=== PATIENT | female | born 1945 | race Caucasian/White ===

== ENCOUNTER 2016-09-01 08:59 | Inpatient (IN) ==
--- NOTE | 2016-09-01 09:19 | Emergency Department Note ---
Disposition Clinical Impression: Acute exacerbation of chronic obstructive airways disease Disposition: Admitted As Inpatient Condition: Fair SOB HPI - General Chief Complaint: ED Shortness of Breath/Dyspnea Stated Complaint: JAKE Time Seen by Provider: 09/01/16 09:12 Source: patient, family Mode of arrival: wheelchair Limitations: no limitations Nursing Notes Reviewed: Yes Vital Signs Reviewed: Yes (O2 saturation low at 85%, improved to 95% on supplemental oxygen.) - History of Present Illness Ms Yuan is a 71 year old female that presents with cough and shortness of breath for 3 days. Patient states cough began on Tuesday, advancing to shortness of breath on Tuesday prompting her to Urgentcare where she was diagnosed with bronchitis and given a cough suppressant and azithromycin (patient began antibiotic yesterday). Patient states that JAKE is worse at night and with exertion. Noted associated cough, but denies sputum production. Denies fever, nausea, vomiting, or congestion. Patient also notes increased fatigue and difficulty with PO intake due to shortness of breath. No use of home oxygen or bronchodilators. Patient continues to smoke approx 1 ppd. Full Code at bedside. Pt Subjective Complaint: shortness of breath, cough Onset (ago): day(s) (3) Severity: moderate Consistency/Duration: gradually worsening Improves with: oxygen, rest, upright position Worsens with: lying flat, exertion, coughing Associated symptoms: Reports: cough. Denies: chest pain, fever, sputum production, palpitations, diaphoresis, nausea/vomiting, syncope, abdominal pain Treatment prior to arrival: none Cough present: Yes Cough Description: Involuntary, Non-Productive, Wheezy Cough Frequency: Intermittent Sputum production: No Sputum Amount: None - Related Data Home oxygen amount: none Home Medications Medication Instructions Recorded Confirmed Allopurinol [Zyloprim 100 MG] 100 mg PO QPM 09/01/16 09/01/16 Azithromycin [Azithromycin 6-Tab 250 mg PO PER PKG DI 09/01/16 09/01/16 Pack] Benzonatate [Tessalon] 200 mg PO TID PRN 09/01/16 09/01/16 Levothyroxine [Synthroid] 25 mcg PO DAILY 09/01/16 09/01/16 Losartan/HCTZ [Hyzaar 50-12.5 1 tab PO QPM 09/01/16 09/01/16 Tablet] Promethazine/Phenyleph/Codeine 5 ml PO TID PRN 09/01/16 09/01/16 [Promethazine Vc-Codeine Syrup] Allergies Allergy/AdvReac Type Severity Reaction Status Date / Time Penicillins Allergy Hives Verified 09/01/16 09:10 All systems ED: reviewed and negative except as stated. Constitutional: Reports: as per HPI. Denies: fever, chills, weakness Eyes: Denies: vision change ENT ED: Reports: dysphagia (with shortness of breath). Denies: hearing loss Cardiovascular: Reports: dyspnea on exertion. Denies: chest pain, palpitations , edema, syncope Respiratory: Reports: cough, dyspnea, wheezes Gastrointestinal: Denies: abdominal pain, nausea, vomiting, diarrhea, hematemesis, melena Genitourinary: Denies: urgency, dysuria, frequency, hematuria Integumentary: Denies: rash Neurological: Denies: headache, weakness, confusion Psychiatric: Reports: anxiety, depression Endocrine: Reports: fatigue Hematological/Lymphatic: Denies: easy bleeding, easy bruising Past Medical History - Past Medical History Attestation: Yes The following information was validated with the patient. Source: patient, obtained from family Medical history: Reports: hypertension, thyroid disease Surgical history: Reports: appendectomy, (x2), cataract (bilaterally) , cholecystectomy Psychiatric history: Reports: anxiety SOCKET PULLER history: Reports: no SOCKET PULLER history - Social History Smoking Status: Current every day smoker Packs per day: 1 Smokeless Tobacco Status: No Alcohol use: Reports: none Drug use: Reports: none Physical Exam - General Limitations: no limitations General appearance: alert - Eye Eye exam: Present: normal appearance, PERRL, EOMI - ENT ENT exam: normal exam, normal oropharynx, mucous membranes moist, normal external ear exam - Neck Neck exam: Present: normal inspection, full ROM, trachea midline - Chest Chest inspection: Present: normal inspection, symmetric chest wall rise. Absent : tenderness - Respiratory Respiratory exam: Present: wheezes - Cardiovascular Cardiovascular exam: Present: regular rate, +S1, +S2 - Abdominal Exam Abdominal exam: Present: soft, Non-Tender, normal bowel sounds - Extremities Exam Extremities exam: Present: normal inspection, full ROM, normal capillary refill. Absent: pedal edema, calf tenderness - Back Exam Back exam: Present: normal inspection. Absent: CVA tenderness (R), CVA tenderness (L) - Neurological Exam Neurological exam: Present: alert, oriented X3, CN II-XII intact - Psychiatric Psychiatric exam: Present: normal affect, normal mood - Skin Skin exam: Present: warm, dry, intact, normal color Course Course Narrative: Ms Yuan is a 71 year old female that presents with cough and shortness of breath for 3 days. Patient states cough began on Tuesday, advancing to shortness of breath on Tuesday prompting her to Urgentcare where she was diagnosed with bronchitis and given a cough suppressant and azithromycin (patient began antibiotic yesterday). Patient states that JAKE is worse at night and with exertion. Noted associated cough, but denies sputum production. Denies fever, nausea, vomiting, or congestion. Patient also notes increased fatigue and difficulty with PO intake due to shortness of breath. No use of home oxygen or bronchodilators. Patient continues to smoke approx 1 ppd. - Reevaluation(s) Reevaluation #1: Patient received duoneb treatment and IV steroid dose. Patient's O2 saturation was 88% which I entered the room, patient easily arousable, but stated she had been nodding off. O2 saturation jumped up to 94% when awoken. She states she feels her she is moving air better, but is still short of breath. Time: 11:03 Vital Signs Temperature 98.5 F 09/01/16 09:05 Pulse Rate 82 09/01/16 09:05 Respiratory Rate 22 09/01/16 09:05 Blood Pressure 133/78 09/01/16 09:05 O2 Sat by Pulse Oximetry 85 L 09/01/16 09:05 Temperature 97.6 F 09/01/16 16:21 Pulse Rate 71 09/01/16 16:21 Respiratory Rate 16 09/01/16 17:10 Blood Pressure 128/64 09/01/16 16:21 O2 Sat by Pulse Oximetry 98 09/01/16 17:10 Oxygen Delivery Oxygen Delivery Nasal Cannula Shortness of Breath/Dyspnea - Differential Diagnosis Likely: acute exacerbation of chronic obstructive airways disease, congestive heart failure, pneumonia, pulmonary embolism, pneumothorax, arrhythmia - Medical Records Medical records reviewed: Yes I reviewed the patient's medical records. - Lab Data Lab results reviewed: Yes I reviewed the patient's lab results. Result diagrams: 09/01/16 09:38 09/01/16 09:38 Lab Results 09/01/16 09/01/16 09/01/16 Range/Units 09:38 09:38 09:38 WBC 9.1 (4.3-11.1) K/mcL RBC 5.03 H (3.82-4.97) M/mcL Hgb 14.3 (11.5-15.4) g/dL Hct 44.1 (35.3-44.9) % MCV 87.7 (83.0-100.0) fL MCH 28.4 (28.0-33.3) pg MCHC 32.4 (31.6-35.5) g/dL RDW 13.9 (11.5-14.5) % Plt Count 208 (140-400) K/mcL MPV 11.3 (9.4-12.4) fL Immature Gran % 0.3 (0-4) % Seg Neutrophils % 79.8 % Lymphocytes % 11.0 % Monocytes % 8.5 % Eosinophils % 0.0 % Basophils % 0.4 % Neutrophils # 7.3 (1.6-8.9) K/mcL Lymphocytes # 1.0 (0.6-4.6) K/mcL Monocytes # 0.8 (0.0-1.3) K/mcL Eosinophils # 0.0 (0.0-0.6) K/mcL Basophils # 0.0 (0.0-0.2) K/mcL Platelet Estimate Normal (Normal) Sodium 139 (136-145) mEq/L Potassium 3.4 L (3.5-4.5) mEq/L Chloride 101 (98-109) mEq/L Carbon Dioxide 25 (19-29) mEq/L BUN 19 (7-20) mg/dL Creatinine 0.96 (0.57-1.11) mg/dL Est GFR ( Amer) > 60 (> 60) Est GFR (Non-Af Amer) 57 L (> 60) BUN/Creatinine Ratio 20 (6-26) Glucose 136 H (70-99) mg/dL Calculated Osmolality 292 (280-300) Calcium 8.9 (8.6-10.8) mg/dL Troponin I 0.02 (0-0.03) ng/mL B-Natriuretic Peptide (0-100) pg/mL 09/01/16 Range/Units 09:38 WBC (4.3-11.1) K/mcL RBC (3.82-4.97) M/mcL Hgb (11.5-15.4) g/dL Hct (35.3-44.9) % MCV (83.0-100.0) fL MCH (28.0-33.3) pg MCHC (31.6-35.5) g/dL RDW (11.5-14.5) % Plt Count (140-400) K/mcL MPV (9.4-12.4) fL Immature Gran % (0-4) % Seg Neutrophils % % Lymphocytes % % Monocytes % % Eosinophils % % Basophils % % Neutrophils # (1.6-8.9) K/mcL Lymphocytes # (0.6-4.6) K/mcL Monocytes # (0.0-1.3) K/mcL Eosinophils # (0.0-0.6) K/mcL Basophils # (0.0-0.2) K/mcL Platelet Estimate (Normal) Sodium (136-145) mEq/L Potassium (3.5-4.5) mEq/L Chloride (98-109) mEq/L Carbon Dioxide (19-29) mEq/L BUN (7-20) mg/dL Creatinine (0.57-1.11) mg/dL Est GFR ( Amer) (> 60) Est GFR (Non-Af Amer) (> 60) BUN/Creatinine Ratio (6-26) Glucose (70-99) mg/dL Calculated Osmolality (280-300) Calcium (8.6-10.8) mg/dL Troponin I (0-0.03) ng/mL B-Natriuretic Peptide 30 (0-100) pg/mL - Radiology Data Radiology results reviewed: Yes I reviewed the patient's radiology results. Attestation Statement - Attestation Attestation: I examined this patient and my medical decision-making was reviewed with the LUMBER SALES SUPERVISOR/PA/Advanced Practice Nurse/Resident Physician. I agree with the documented findings, disposition and treatment plan as described except to the extent set forth below. Patient presents today with 3 day history of upper respiratory symptoms and wheezing. She has a long history of smoking but no formal diagnosis of COPD. After initial DuoNeb and steroids patient was still wheezy and dyspneic I recommended hospitalization.
[2016-09-01 09:45] LABS: Basophils % 0.4 %; Hematocrit 44.1 % (35.3-44.9); Hemoglobin 14.3 g/dL (11.5-15.4); Immature Granulocytes % 0.3 % (0-4); Mean Corpuscular HGB Conc 32.4 g/dL (31.6-35.5); Mean Corpuscular Hemoglobin 28.4 pg (28.0-33.3); Mean Corpuscular Volume 87.7 fL (83.0-100.0); Mean Platelet Volume 11.3 fL (9.4-12.4); Monocytes # 0.8 K/mcL (0.0-1.3); Monocytes % 8.5 %; Platelet Count 208 K/mcL (140-400); Red Blood Count 5.03 M/mcL (3.82-4.97); Red Cell Distribution Width 13.9 % (11.5-14.5); Segmented Neutrophils % 79.8 %
[2016-09-01 09:47] LABS: Neutrophils # 7.3 K/mcL (1.6-8.9)
[2016-09-01] MEDS ORDERED: methylPREDNISolone 125 MG/2 ML VIAL IVP ONE (09:48)
[2016-09-01] MEDS ORDERED: Ipratropium/Albuterol Neb 3 ML IH ONE ×2 (09:48→11:07)
[2016-09-01 09:59] LABS: BUN/Creatinine Ratio 20 (6-26); Blood Urea Nitrogen 19 mg/dL (7-20); Calcium 8.9 mg/dL (8.6-10.8); Carbon Dioxide 25 mEq/L (19-29); Chloride 101 mEq/L (98-109); Glucose 136 mg/dL (70-99); Osmolality,Calculated 292 (280-300); Potassium 3.4 mEq/L (3.5-4.5); Sodium 139 mEq/L (136-145); eGFR For African Americans > 60 (> 60); eGFR For Non-African Americans 57 (> 60)
[2016-09-01 10:06] LABS: Platelet Estimate Normal (Normal)
[2016-09-01] MEDS ORDERED: Levofloxacin 750 MG/150 ML 750 MG/150 ML BAG IVPB ONE (11:22)
[2016-09-01] MEDS ORDERED: Naloxone 0.4 MG/ML INJ IVP PRN (14:02)
[2016-09-01] MEDS ORDERED: Acetaminophen 325 MG TABLET PO PRN (14:02)
[2016-09-01] MEDS ORDERED: Albuterol 2.5 MG/3 ML NEBULIZER IH PRN (14:48)
--- NOTE | 2016-09-01 14:51 | Internal Med History&Physical ---
Date of Encounter: 09/01/16 Time of Encounter: 14:50 Assessment and Plan (1) Acute exacerbation of chronic obstructive airways disease Current visit: Yes Status: Acute 1 patient has been experiencing increasing shortness of breath and cough over the past 3 days. She does have a history of smoking 1 pack per day. She was hypoxic upon presentation with SPO2 of 85% we will continue with oxygen titrated to maintain SPO2 greater than 92% 2 continue with steroids to taper 3 continue with Levaquin 4 continue with Mucinex 5 continue with bronchodilators 6 patient may need a 6 minute walk test prior to discharge to evaluate need for home oxygen (2) Hypertension Current visit: Yes Status: Acute 1 week and told continue with home medications with a maintain systolic less than 140 Qualifiers: Hypertension type: essential hypertension Qualified Code(s): I10 - Essential (primary) hypertension (3) Hypothyroid Current visit: Yes Status: Acute 1 we will continue with Synthroid Qualifiers: Hypothyroidism type: unspecified Qualified Code(s): E03.9 - Hypothyroidism , unspecified (4) Tobacco abuse Current visit: Yes Status: Acute 1 discuss the importance of smoking cessation with the patient, nicotine patch (5) DVT prophylaxis Current visit: Yes Status: Acute [facility] Internal Medicine - H&P: HPI Chief complaint: sob Admitted From: Emergency Dept Plans for Post Hospital Care: Home History of present illness: Ms. Yuan is a 71 year old female past medical history hypertension hypothyroid gout tobacco abuse. The patient she been experiencing a non- productive cough no fevers chills which started on Tuesday. She went to urgent care Tuesday and was diagnosed with bronchitis and was who prescribed azithromycin as well as cough medicine. By Tuesday her cough continues to began to experiencing shortness of breath on exertion as well as increased fatigue decreased oral intake and orthopnea . She denies any fevers nausea vomiting abdominal pain chills congestion. She denies any past history of COPD home oxygen use her bronchodilators. She smokes approximately one pack a day. She admits to sick contacts. She presented since the ER with the above complaints. According to ER records upon presentation patient appeared tachypneic with O2 sat saturations 85% on room air. She was given supplemental oxygen as due to increase in 95%. Lab work was obtained there was no leukocytosis troponin was negative. Chest x-ray did reveal no pneumonia images consistent with bronchitis and chronic COPD changes. She was given breathing treatments as well as steroids respiratory status improved. She is admitted for further workup and evaluation. Presently patient denies any shortness of breath she does not appear to be any respiratory distress however her sats are 92% on 3 L nasal cannula fingertips are slightly dusky. Nursing reports the patient's oxygen saturation does drop during exertion down to the upper 80s. Patient increased to 4 L nasal cannula. Patient does have audible wheezes and a moist nonproductive cough. I reviewed this case with Dr. Rodriguez who agrees with the plan. Past Med Surg Social Fam HX - Past Medical History Medical history: hypertension, thyroid disease Psychiatric history: anxiety - Past Surgical History Surgical History: appendectomy, , cataract, cholecystectomy - Social History Smoking Status: Current every day smoker Packs per day: 1 Smokeless Tobacco Status: No Alcohol use: none Drug use: none Internal Medicine - H&P: Meds Allopurinol [Zyloprim 100 MG] 100 mg PO QPM 09/01/16 [History] Azithromycin [Azithromycin 6-Tab Pack] 250 mg PO PER PKG DI 09/01/16 [History] Benzonatate [Tessalon] 200 mg PO TID PRN 09/01/16 [History] Levothyroxine [Synthroid] 25 mcg PO DAILY 09/01/16 [History] Losartan/HCTZ [Hyzaar 50-12.5 Tablet] 1 tab PO QPM 09/01/16 [History] Promethazine/Phenyleph/Codeine [Promethazine Vc-Codeine Syrup] 5 ml PO TID PRN 09/01/16 [History] Allergies Penicillins Allergy (Verified 09/01/16 09:10) Hives All Systems PM: A 10-system review of systems was performed and is negative for pertinent findings except as documented above in the HPI. - Constitutional Constitutional: anorexia, fatigue, weakness - Cardiovascular Cardiovascular ROS IM: orthopnea, no chest pain, no diaphoresis, no dyspnea, no lightheadedness, no palpitations, no syncope - Respiratory Respiratory: cough, dyspnea on exertion, wheezing - Gastrointestinal Gastrointestinal: no abdominal pain, no diarrhea, no hematemesis, no hematochezia, no melena, no nausea, no vomiting - Genitourinary Genitourinary: no change in urinary stream, no dysuria, no flank pain, no hematuria - Musculoskeletal Musculoskeletal ROS IM: no numbness, no tingling - Integumentary Integumentary IM: no rash, no unusual bruising - Neurological Neurological ROS: no confusion, no convulsions, no focal weakness, no numbness, no tingling, no tremor(s) - Constitutional Vitals: Temp Pulse Resp BP Pulse Ox 98.5 F 72 18 128/57 92 L 09/01/16 09:05 09/01/16 14:26 09/01/16 14:26 09/01/16 14:26 09/01/16 14:27 General appearance: Present: A&O X 3, no acute distress, answers questions appropriately - Head Head exam: Present: atraumatic, normocephalic - Eye Eye exam: Present: PERRL, conjuntiva pink, sclera anicteric Pupils: Present: PERRL - Neck Neck exam general surgery: Present: supple, trachea midline. Absent: lymphadenopathy - Respiratory Respiratory exam: Present: wheezes. Absent: accessory muscle use, rales, rhonchi Additional comments: Audible expiratory wheezes - Cardiovascular Cardiovascular exam: Present: RRR, +S1, +S2. Absent: diastolic murmur, gallop, rubs, systolic murmur - GI/Abdominal GI/Abdominal exam: Present: normal bowel sounds, soft, no peritoneal signs. Absent: distended, tenderness - Extremities Exam Extremities exam: Present: cyanotic, warm, radial pulses palpable and symetrical. Absent: calf tenderness, pedal edema - Neurological Exam Neurological exam: Present: CN II-XII intact, oriented X3, no focal deficits. Absent: pronater drift, facial droop, speech deficit - Skin Skin exam: Present: cyanosis, dry, intact Internal Med - H&P Results - Labs CBC & Chem 7: 09/01/16 09:38 09/01/16 09:38 - Diagnostic Studies Chest x-ray Additional comments: Chest X-Ray 09/01/16 09:12 IMPRESSION: Findings suggesting COPD with acute versus chronic bronchitis. No lobar pneumonia. D/ / Tuan Florez MD / Tuan Florez MD Interpreting Provider: Tuan Florez MD - VTE Reasons for not Prescribing Prophylaxis: Treatment not Indicated - Low risk for VTE
[2016-09-01] MEDS ORDERED: Ipratropium/Albuterol Neb 3 ML IH SCH (17:00)
[2016-09-01] MEDS: Ipratropium/Albuterol Neb 3 ML IH SCH ×2 (17:15→22:02)
[2016-09-01] MEDS: Nicotine 14 MG PATCH.TD24 TD SCH (18:23)
[2016-09-01] MEDS: Losartan/HCTZ 50-12.5 TABLET PO SCH (18:25)
[2016-09-01] MEDS: methylPREDNISolone 125 MG/2 ML VIAL IM SCH (18:25)
[2016-09-02] MEDS: methylPREDNISolone 125 MG/2 ML VIAL IM SCH ×2 (00:29→05:27)
[2016-09-02] MEDS: Ipratropium/Albuterol Neb 3 ML IH SCH ×4 (04:06→23:17)
[2016-09-02 05:22] LABS: Basophils % 0.1 %; Hematocrit 41.5 % (35.3-44.9); Hemoglobin 13.8 g/dL (11.5-15.4); Immature Granulocytes % 0.5 % (0-4); Lymphocytes # 0.9 K/mcL (0.6-4.6); Lymphocytes % 11.2 %; Mean Corpuscular HGB Conc 33.3 g/dL (31.6-35.5); Mean Corpuscular Hemoglobin 29.2 pg (28.0-33.3); Mean Corpuscular Volume 87.7 fL (83.0-100.0); Mean Platelet Volume 11.9 fL (9.4-12.4); Monocytes # 0.4 K/mcL (0.0-1.3); Monocytes % 4.8 %; Neutrophils # 6.6 K/mcL (1.6-8.9); Platelet Count 205 K/mcL (140-400); Red Blood Count 4.73 M/mcL (3.82-4.97); Red Cell Distribution Width 13.6 % (11.5-14.5); Segmented Neutrophils % 83.4 %
[2016-09-02] MEDS: Levothyroxine 25 MCG TABLET PO SCH (05:27)
[2016-09-02 05:43] LABS: BUN/Creatinine Ratio 23 (6-26); Blood Urea Nitrogen 24 mg/dL (7-20); Calcium 9.1 mg/dL (8.6-10.8); Carbon Dioxide 26 mEq/L (19-29); Chloride 102 mEq/L (98-109); Glucose 177 mg/dL (70-99); Osmolality,Calculated 300 (280-300); Potassium 3.2 mEq/L (3.5-4.5); Sodium 141 mEq/L (136-145); eGFR For African Americans > 60 (> 60); eGFR For Non-African Americans 52 (> 60)
--- NOTE | 2016-09-02 06:34 | Electrocardiograph Report ---
[facility] Test Date: 2016-09-01 Pat Name: Gini Yuan Department: 103 Room: 3A43 Gender: F Fiscal Accounting Clerk: [id number] : 1945 Requested By: Polo Roca Order Number: [id number] Reading MD: Latrell Peter DO Measurements Intervals Lena Rate: 81 P: 64 NC: 169 QRS: 40 QRSD: 153 T: 171 QT: 414 QTc: 451 Interpretive Statements SINUS RHYTHM LEFT BUNDLE BRANCH BLOCK INTERPRETATION BASED ON A DEFAULT AGE OF 40 YEARS Electronically Signed On 09-02-2016 6:33:06 EDT by Latrell Peter DO
[2016-09-02] MEDS: Nicotine 14 MG PATCH.TD24 TD SCH (08:21)
[2016-09-02] MEDS ORDERED: Levofloxacin 750 MG/150 ML 750 MG/150 ML BAG IVPB SCH (09:00)
[2016-09-02] MEDS ORDERED: methylPREDNISolone 125 MG/2 ML VIAL IVP SCH (12:00)
--- NOTE | 2016-09-02 14:59 | Internal Med Progress Note ---
Date of Encounter: 09/02/16 Time of Encounter: 14:57 - Assessment and plan (1) Hypokalemia Current Visit: Yes Status: Acute Assessment and plan: Replace potassium today orally. Recheck potassium in the morning (2) Acute exacerbation of chronic obstructive airways disease Current Visit: Yes Status: Acute Assessment and plan: See plan delineated in acute respiratory failure (3) Tobacco abuse Current Visit: Yes Status: Acute Assessment and plan: I was fairly blunt with the patient in regards to smoking cessation being the cornerstone and an imperative for the treatment of her lung disease (4) Acute respiratory failure with hypoxia Current Visit: Yes Status: Acute Assessment and plan: #1 increase Solu-Medrol to 125 every 6 hours. #2 continue current aerosols #3 continue IV antibiotics - Time Spent With Patient 25 - 35 minutes - Subjective Interval history: This is a 71-year-old female tells me she has been diagnosed with "COPD" before and still continues to smoke. She had gradually more short of breath with increased coughing and sputum production. On evaluation in emergency found to be hypoxic. She required a fair amount of oxygen up to 4 L/m initially and then is gradually taper down about 2 L per nasal cannula but still requiring oxygen. She still continues to have a cough. She still feels short of breath. She still feels quite miserable. She looks uncomfortable. While in the room she is in a tripod position while up in the chair at the bedside - Constitutional Vitals: Temp Pulse Resp BP Pulse Ox 97.7 F 77 16 119/62 97 09/02/16 14:54 09/02/16 14:54 09/02/16 14:54 09/02/16 14:54 09/02/16 14:54 General appearance: Present: mild distress, A&O X 3, obese, answers questions appropriately - Respiratory Respiratory exam: Present: respiratory distress (Mild respiratory distress), wheezes. Absent: accessory muscle use, chest wall tenderness, tachypnea - Expanded Respiratory Exam Location: wheezes: Upper, Lower, Right, Left - Cardiovascular Cardiovascular exam: Present: RRR Internal Medicine: Result - Labs CBC & Chem 7: 09/02/16 04:46 09/02/16 04:46 Labs: Short CBC 09/02/16 Range/Units 04:46 WBC 7.9 (4.3-11.1) K/mcL Hgb 13.8 (11.5-15.4) g/dL Hct 41.5 (35.3-44.9) % Plt Count 205 (140-400) K/mcL Neutrophils # 6.6 (1.6-8.9) K/mcL BMP 09/02/16 04:46 Sodium 141 Potassium 3.2 L Chloride 102 Carbon Dioxide 26 BUN 24 H Creatinine 1.05 Glucose 177 H Calcium 9.1 - VTE Reasons for not Prescribing Prophylaxis: Treatment not Indicated - Low risk for VTE Consult Discharge Plan - Plan Referrals: Lukasz Gomes [Primary Care Provider] - 09/14/16 11:30 am
[2016-09-02] MEDS: *HR* Heparin 5,000 UNIT/ML VIAL SQ SCH (18:34)
[2016-09-02] MEDS: methylPREDNISolone 125 MG/2 ML VIAL IVP SCH (18:34)
[2016-09-02] MEDS: Losartan/HCTZ 50-12.5 TABLET PO SCH (18:34)
[2016-09-02] MEDS: Beclomethasone 40mcg MDI IH SCH (23:24)
[2016-09-03] MEDS: methylPREDNISolone 125 MG/2 ML VIAL IVP SCH ×5 (00:23→23:50)
[2016-09-03 04:33] LABS: Basophils % 0.2 %; Hematocrit 40.7 % (35.3-44.9); Hemoglobin 13.2 g/dL (11.5-15.4); Immature Granulocytes % 0.6 % (0-4); Lymphocytes # 1.1 K/mcL (0.6-4.6); Lymphocytes % 6.2 %; Mean Corpuscular HGB Conc 32.4 g/dL (31.6-35.5); Mean Corpuscular Hemoglobin 28.4 pg (28.0-33.3); Mean Corpuscular Volume 87.7 fL (83.0-100.0); Mean Platelet Volume 11.9 fL (9.4-12.4); Monocytes # 0.7 K/mcL (0.0-1.3); Monocytes % 3.7 %; Neutrophils # 16.2 K/mcL (1.6-8.9); Platelet Count 225 K/mcL (140-400); Red Blood Count 4.64 M/mcL (3.82-4.97); Red Cell Distribution Width 13.8 % (11.5-14.5); Segmented Neutrophils % 89.3 %
[2016-09-03] MEDS: Ipratropium/Albuterol Neb 3 ML IH SCH ×4 (04:44→21:21)
[2016-09-03 04:55] LABS: BUN/Creatinine Ratio 32 (6-26); Blood Urea Nitrogen 32 mg/dL (7-20); Calcium 9.5 mg/dL (8.6-10.8); Carbon Dioxide 27 mEq/L (19-29); Chloride 104 mEq/L (98-109); Glucose 183 mg/dL (70-99); Osmolality,Calculated 304 (280-300); Potassium 3.2 mEq/L (3.5-4.5); Sodium 141 mEq/L (136-145); eGFR For African Americans > 60 (> 60); eGFR For Non-African Americans 54 (> 60)
[2016-09-03] MEDS: *HR* Heparin 5,000 UNIT/ML VIAL SQ SCH ×2 (05:52→18:14)
[2016-09-03] MEDS: Levothyroxine 25 MCG TABLET PO SCH (05:55)
--- NOTE | 2016-09-03 08:01 | Internal Med Progress Note ---
Date of Encounter: 09/03/16 Time of Encounter: 07:59 - Assessment and plan (1) Acute exacerbation of chronic obstructive airways disease Current Visit: Yes Status: Acute Assessment and plan: still wheezing and sob will continue treatment not stable for discharge (2) Acute respiratory failure with hypoxia Current Visit: Yes Status: Acute Assessment and plan: clinically improved (3) Hypertension Current Visit: Yes Status: Acute Assessment and plan: now well controlled Qualifiers: Hypertension type: essential hypertension Qualified Code(s): I10 - Essential (primary) hypertension (4) Hypokalemia Current Visit: Yes Status: Acute Assessment and plan: k still 3.2 (5) Hypothyroid Current Visit: Yes Status: Chronic Assessment and plan: continue supplement Qualifiers: Hypothyroidism type: unspecified Qualified Code(s): E03.9 - Hypothyroidism , unspecified (6) Tobacco abuse Current Visit: Yes Status: Chronic Assessment and plan: chronic - Subjective Interval history: Patient with history of copd/asthma, smoking history admitted with incraesed sob and dry coughing no chest pain . today feels better on exam stl wheezing - Constitutional Vitals: Temp Pulse Resp BP Pulse Ox 98.0 F 80 18 129/74 93 L 09/03/16 04:13 09/03/16 04:13 09/03/16 04:44 09/03/16 04:13 09/03/16 04:44 General appearance: Present: mild distress, A&O X 3, obese, answers questions appropriately - Head Head exam: Present: atraumatic, normocephalic - Eye Eye exam: Present: PERRL, conjuntiva pink, sclera anicteric Pupils: Present: PERRL - Respiratory Respiratory exam: Present: decreased breath sounds, rhonchi, wheezes - Cardiovascular Cardiovascular exam: Present: RRR - GI/Abdominal GI/Abdominal exam: Present: soft - Extremities Exam Extremities exam: Present: warm, radial pulses palpable and symetrical. Absent : calf tenderness, cyanotic, pedal edema Internal Medicine: Result - Labs CBC & Chem 7: 09/03/16 04:02 09/03/16 04:02 Labs: Short CBC 09/03/16 Range/Units 04:02 WBC 18.1 H D (4.3-11.1) K/mcL Hgb 13.2 (11.5-15.4) g/dL Hct 40.7 (35.3-44.9) % Plt Count 225 (140-400) K/mcL Neutrophils # 16.2 H (1.6-8.9) K/mcL BMP 09/03/16 04:02 Sodium 141 Potassium 3.2 L Chloride 104 Carbon Dioxide 27 BUN 32 H Creatinine 1.01 Glucose 183 H Calcium 9.5 - VTE Reasons for not Prescribing Prophylaxis: Treatment not Indicated - Low risk for VTE Consult Discharge Plan - Plan Referrals: Lukasz Gomes [Primary Care Provider] - 09/14/16 11:30 am
[2016-09-03] MEDS: Nicotine 14 MG PATCH.TD24 TD SCH (08:39)
[2016-09-03] MEDS ORDERED: Levofloxacin 750 MG/150 ML 750 MG/150 ML BAG IVPB SCH (09:00)
[2016-09-03] MEDS: Beclomethasone 40mcg MDI IH SCH ×2 (10:18→21:22)
[2016-09-03] MEDS: Losartan/HCTZ 50-12.5 TABLET PO SCH (18:14)
[2016-09-04 04:46] LABS: Hematocrit 39.6 % (35.3-44.9); Hemoglobin 13.1 g/dL (11.5-15.4); Mean Corpuscular HGB Conc 33.1 g/dL (31.6-35.5); Mean Corpuscular Hemoglobin 29.1 pg (28.0-33.3); Mean Platelet Volume 12.3 fL (9.4-12.4); Platelet Count 230 K/mcL (140-400); Red Cell Distribution Width 13.9 % (11.5-14.5)
[2016-09-04] MEDS: Ipratropium/Albuterol Neb 3 ML IH SCH ×2 (04:55→09:52)
[2016-09-04 05:02] LABS: BUN/Creatinine Ratio 33 (6-26); Blood Urea Nitrogen 34 mg/dL (7-20); Calcium 9.4 mg/dL (8.6-10.8); Carbon Dioxide 28 mEq/L (19-29); Chloride 106 mEq/L (98-109); Glucose 203 mg/dL (70-99); Osmolality,Calculated 307 (280-300); Potassium 3.7 mEq/L (3.5-4.5); Sodium 142 mEq/L (136-145); eGFR For African Americans > 60 (> 60); eGFR For Non-African Americans 53 (> 60)
[2016-09-04] MEDS: Levothyroxine 25 MCG TABLET PO SCH (05:37)
[2016-09-04] MEDS: *HR* Heparin 5,000 UNIT/ML VIAL SQ SCH (05:37)
[2016-09-04] MEDS: methylPREDNISolone 125 MG/2 ML VIAL IVP SCH (05:37)
--- NOTE | 2016-09-04 07:35 | Discharge Summary ---
Date of Encounter: 09/04/16 Time of Encounter: 07:33 - Discharge Diagnosis (1) Acute exacerbation of chronic obstructive airways disease Priority: Primary Status: Acute Comments: clinically much better wants to go home on home o2 (2) Acute respiratory failure with hypoxia Priority: Secondary Status: Acute Comments: clinically improvedd (3) Hypertension Priority: Secondary Status: Chronic Comments: well controlled Qualifiers: Hypertension type: essential hypertension Qualified Code(s): I10 - Essential (primary) hypertension (4) Hypokalemia Priority: Secondary Status: Acute Comments: resolved (5) Hypothyroid Priority: Secondary Status: Chronic Comments: tsh ok Qualifiers: Hypothyroidism type: unspecified Qualified Code(s): E03.9 - Hypothyroidism , unspecified (6) Tobacco abuse Priority: Secondary Status: Chronic Comments: chronic - Discharge Medications Prescriptions: Beclomethasone Diprop 40mcg [QVAR 40 mcg] 1 puff IH BIDR #2 puff Ipratropium/Albuterol Neb [Duoneb] 3 ml IH QIDR #33 inhsol MethylPREDNISolone [Medrol] 20 mg PO DAILY #10 tab Potassium Chloride 20 meq PO BID #60 tab.er.prt Home Medications: Allopurinol [Zyloprim 100 MG] 100 mg PO QPM 09/01/16 [History] Azithromycin [Azithromycin 6-Tab Pack] 250 mg PO PER PKG DI 09/01/16 [History] Benzonatate [Tessalon] 200 mg PO TID PRN 09/01/16 [History] Levothyroxine [Synthroid] 25 mcg PO DAILY 09/01/16 [History] Losartan/HCTZ [Hyzaar 50-12.5 Tablet] 1 tab PO QPM 09/01/16 [History] Promethazine/Phenyleph/Codeine [Promethazine Vc-Codeine Syrup] 5 ml PO TID PRN 09/01/16 [History] Beclomethasone Diprop 40mcg [QVAR 40 mcg] 1 puff IH BIDR #2 puff 09/04/16 [Rx] Ipratropium/Albuterol Neb [Duoneb] 3 ml IH QIDR #33 inhsol 09/04/16 [Rx] MethylPREDNISolone [Medrol] 20 mg PO DAILY #10 tab 09/04/16 [Rx] Potassium Chloride 20 meq PO BID #60 tab.er.prt 09/04/16 [Rx] Allergies/Adverse Reactions: Allergies Penicillins Allergy (Verified 09/01/16 09:10) Hives Date of admission: 09/02/16 15:10 Primary care physician: Lukasz Gomes Consults: 09/03/16 04:26 Consult to Tour Director [CONS] Routine Reason for SW Consult: Patient admitted for COPD and has no home O2. Discharging clinician: Deepthi Rodríguez Anticipated date of discharge: 09/04/16 - Patient Status Disposition: Home, Self-Care Condition: Good Overall status at discharge: patient is back to baseline - Discharge Instructions Forms: ED Satisfaction Letter - Diet and Activity Activity: increase activity as tolerated Diet: advance to your usual diet Hospital course: Ms. Yuan is a 71 year old female - Time Spent with Patient Total time spent providing and/or coordinating discharge services: - Constitutional Vitals: Temp Pulse Resp BP Pulse Ox 97.5 F L 75 16 135/72 95 09/04/16 03:22 09/04/16 03:22 09/04/16 04:55 09/04/16 03:22 09/04/16 04:55 General appearance: Present: mild distress, A&O X 3, obese, answers questions appropriately - Eye Eye exam: Present: PERRL, conjuntiva pink, sclera anicteric Pupils: Present: PERRL - Neck Neck exam general surgery: Present: supple, trachea midline. Absent: lymphadenopathy - Respiratory Respiratory exam: Present: CTAB. Absent: accessory muscle use, rales, rhonchi, wheezes - Cardiovascular Cardiovascular exam: Present: RRR, +S1, +S2. Absent: diastolic murmur, gallop, rubs, systolic murmur - Extremities Exam Extremities exam: Present: warm, radial pulses palpable and symetrical. Absent : calf tenderness, cyanotic, pedal edema - VTE Reasons for not Prescribing Prophylaxis: Treatment not Indicated - Low risk for VTE
[2016-09-04 07:50] VITALS: BP 139/76
--- NOTE | 2016-09-04 07:51 | Physician Discharge Referral ---
Home Health/Hosp Referral Info Transfer to: Home Health Provider in Charge Post Discharge: PCP - Diagnosis (1) Acute exacerbation of chronic obstructive airways disease Status: Acute (2) Acute respiratory failure with hypoxia Status: Acute (3) Hypertension Status: Chronic (4) Hypokalemia Status: Acute (5) Hypothyroid Status: Chronic (6) Tobacco abuse Status: Chronic - Respiratory Orders Oxygen / L per min Smoking Cessation: Smoking cessation has been advised. For more information, call the [place] Tobacco Quit Line at 4-881-GCVN-NOW. - Transfer Medications Prescriptions: Beclomethasone Diprop 40mcg [QVAR 40 mcg] 1 puff IH BIDR #2 puff Ipratropium/Albuterol Neb [Duoneb] 3 ml IH QIDR #33 inhsol MethylPREDNISolone [Medrol] 20 mg PO DAILY #10 tab Potassium Chloride 20 meq PO BID #60 tab.er.prt Home Medications: Allopurinol [Zyloprim 100 MG] 100 mg PO QPM 09/01/16 [History] Azithromycin [Azithromycin 6-Tab Pack] 250 mg PO PER PKG DI 09/01/16 [History] Benzonatate [Tessalon] 200 mg PO TID PRN 09/01/16 [History] Levothyroxine [Synthroid] 25 mcg PO DAILY 09/01/16 [History] Losartan/HCTZ [Hyzaar 50-12.5 Tablet] 1 tab PO QPM 09/01/16 [History] Promethazine/Phenyleph/Codeine [Promethazine Vc-Codeine Syrup] 5 ml PO TID PRN 09/01/16 [History] Beclomethasone Diprop 40mcg [QVAR 40 mcg] 1 puff IH BIDR #2 puff 09/04/16 [Rx] Ipratropium/Albuterol Neb [Duoneb] 3 ml IH QIDR #33 inhsol 09/04/16 [Rx] MethylPREDNISolone [Medrol] 20 mg PO DAILY #10 tab 09/04/16 [Rx] Potassium Chloride 20 meq PO BID #60 tab.er.prt 09/04/16 [Rx] Allergies/Adverse Reactions: Allergies Penicillins Allergy (Verified 09/01/16 09:10) Hives Certification: Further, I certify that my clinical findings support that this patient is homebound (i.e. absences from home require considerable and taxing effort and are for medical reasons or temple services or infrequently or short duration when for other reasons) because: Attestation: My signature below is to certify that this patient is under my care and that I, or nurse practitioner, or a physician's catering administrative assistant working with me, has a face-to -face encounter with this patient.
[2016-09-04] MEDS: Nicotine 14 MG PATCH.TD24 TD SCH (08:04)
[2016-09-04] MEDS: Beclomethasone 40mcg MDI IH SCH (09:52)
== END 2016-09-04 09:52 | disposition home or self-care (01) | DRG 190 ==
LOC: 3BNU 08:59 → EMEROO 08:59 → 3ANU 14:12
PROVIDERS: ADMIT Internal Medicine; ATTEND Nurse Practitioner Family